=== PATIENT | male | born 1960 | race Caucasian/White ===

== ENCOUNTER 2024-03-11 20:40 | Inpatient (IN) | payer OTHER ==
[~2024-03-11] VITALS: Ht 177.8 cm; Wt 197.5 kg
[2024-03-11] MEDS ORDERED: MORPHINE SULFATE 4 MG/1 ML DISP.SYRIN ONE (21:30)
[2024-03-11] MEDS ORDERED: ONDANSETRON 4 MG/2 ML VIAL ONE (21:30)
[2024-03-11] MEDS: MORPHINE SULFATE 2 MG/1 ML DISP.SYRIN IV ONE (21:34)
[2024-03-11] MEDS: ONDANSETRON 4 MG/2 ML VIAL IV ONE (21:34)
[2024-03-11 21:45] LABS: BASOPHILS # (AUTO) 0.1 K/UL (0.0-0.2); BASOPHILS % (AUTO) 0.7 % (0.0-2.0); DIFFERENTIAL COMMENT 0; EOSINOPHILS # (AUTO) 0.1 K/uL (0.0-0.7); EOSINOPHILS % (AUTO) 0.9 % (0.0-7.0); HEMATOCRIT 34.9 % (36.7-47.1); HEMOGLOBIN 11.8 g/dL (12.5-16.3); LYMPHOCYTES # (AUTO) 1.3 K/uL (0.8-4.8); MEAN CORPUSCULAR HEMOGLOBIN 28.5 uug (23.8-33.4); MEAN CORPUSCULAR HGB CONC 34 g/dL (32.5-36.3); MEAN CORPUSCULAR VOLUME 84.5 fL (73.0-96.2); MONOCYTES # (AUTO) 0.9 K/uL (0.1-1.30); MONOCYTES % (AUTO) 6.8 % (0.0-11.0); NEUTROPHILS # (AUTO) 10.8 K/uL (1.8-8.9); NEUTROPHILS % (AUTO) 81.6 % (38.5-71.5); PLATELET COUNT (AUTO) 257 K/uL (152-348); RED BLOOD CELL COUNT(AUTO) 4.13 MIL/uL (4.06-5.63); RED CELL DISTRIBUTION WIDTH 17.1 % (12.1-16.2); WHITE BLOOD COUNT (AUTO) 13.2 K/uL (3.6-10.2)
[2024-03-11 22:18] LABS: *BILIRUBIN,URIN NEGATIVE (NEGATIVE); *BLOOD, URINE NEGATIVE (NEGATIVE); *CLARITY,URINE CLEAR (CLEAR); *COLOR,URINE YELLOW (YELLOW); *KETONES,URINE NEGATIVE (NEGATIVE); *PROTEIN,URINE 2+ (NEGATIVE); *UROBILINOGEN,URINE 0.2 E.U./dl (NORMAL); LEUKOCYTE ESTERASE ,URINE 1+ (NEGATIVE); NITRITE, URINE POSITIVE (NEGATIVE); PH,URINE 6.5 (5.0-8.0); UGLUCOSE NEGATIVE (NEGATIVE)
[2024-03-11 22:19] LABS: BACTERIA,URINE FEW /HPF (NONE SEEN); RBC,URINE 0-3 /HPF (0-3)
[2024-03-11] MEDS ORDERED: HYDROMORPHONE 1 MG/1 ML DISP.SYRIN ONE (22:25)
[2024-03-11] MEDS: HYDROMORPHONE 1 MG/1 ML DISP.SYRIN IV ONE (22:28)
[2024-03-11] MEDS ORDERED: METOCLOPRAMIDE HCL 10 MG TABLET ONE (22:38)
[2024-03-11] MEDS: METOCLOPRAMIDE HCL 10 MG TABLET PO ONE (22:39)
[2024-03-11 23:10] LABS: ALANINE AMINOTRANSFERASE 97 U/L (16-63); ALBUMIN 3.6 g/dL (3.4-5.0); ALKALINE PHOSPHATASE 93 U/L (50-136); ASPARTATE AMINOTRANSFERASE 50 U/L (15-37); BILIRUBIN,DIRECT 0.2 mg/dL (0.0-0.2); BILIRUBIN,TOTAL 0.4 mg/dL (0.2-1.0); CARBON DIOXIDE 25 mmol/L (21-32); CREATININE 0.9 mg/dL (0.6-1.3); GLUCOSE 150 mg/dL (74-106); TOTAL PROTEIN, SERUM 7.5 g/dL (6.4-8.2); UREA NITROGEN, BLOOD 32 mg/dL (7-18)
[2024-03-11] MEDS ORDERED: INSU100C SUBCUT (23:19)
[2024-03-11] MEDS ORDERED: METF-442 PO (23:19)
[2024-03-11] MEDS ORDERED: ATOR40TA PO (23:19)
[2024-03-11] MEDS ORDERED: ZIPR80CA2 PO (23:19)
[2024-03-11] MEDS ORDERED: INSU300I SQ (23:19)
[2024-03-11] MEDS ORDERED: LORAZEPAM 2 MG/1 ML VIAL ONE (23:46)
[2024-03-11] MEDS: LORAZEPAM 2 MG/1 ML VIAL IV ONE (23:58)
[2024-03-12] MEDS: IV NS 1000 ML 1,000 ML IV ONE (00:07)
[2024-03-12] MEDS ORDERED: HYDROMORPHONE 1 MG/1 ML DISP.SYRIN ONE (01:35)
[2024-03-12] MEDS: HYDROMORPHONE 1 MG/1 ML DISP.SYRIN IV ONE (01:41)
[2024-03-12 01:44] LABS: CHLORIDE 90 mmol/L (98-107); LIPASE 67 U/L (16-77); POTASSIUM 4.9 mmol/L (3.5-5.1); SODIUM SERUM 128 mmol/L (136-145)
[2024-03-12] MEDS ORDERED: CEFTRIAXONE /D5W 50ML IVPB **ER PYXIS IV ONE (02:31)
[2024-03-12] MEDS: CEFTRIAXONE 1 G in IV DEXTROSE 5% 50 ML IV ONE (02:39)
[2024-03-12] MEDS ORDERED: REMEDY ESSENTIAL ZINC PASTE 113 GM TP PRN (02:45)
[2024-03-12] MEDS ORDERED: DEXTROSE 50% 50 ML DISP.SYRIN IV PRN (02:45)
[2024-03-12] MEDS ORDERED: hydrALAZINE HCL 20 MG/1 ML VIAL ONE (03:19)
[2024-03-12] MEDS: hydrALAZINE HCL 20 MG/1 ML VIAL IV ONE (03:24)
[2024-03-12 04:10] VITALS: BP 114/83; TEMP 97.2; O2SAT 93
[2024-03-12] MEDS: HYDROMORPHONE 1 MG/1 ML DISP.SYRIN IV PRN (04:17)
[2024-03-12] MEDS: ONDANSETRON 4 MG/2 ML VIAL IV PRN (04:17)
[2024-03-12] MEDS: FUROSEMIDE 40 MG/4 ML VIAL IV ONE (04:19)
[2024-03-12] MEDS: BLOOD SUGAR DIAGNOSTIC 1 EACH STRIP VI SCH (06:32)
[2024-03-12 07:48] VITALS: BP 152/86; TEMP 98.3; O2SAT 93
[2024-03-12 11:49] VITALS: BP 124/70; TEMP 98.5; O2SAT 94
[2024-03-12] MEDS: INSULIN REGULAR, HUMAN 1000 UNIT/10 ML VIAL SQ PRN (12:09)
[2024-03-12] MEDS ORDERED: FERR-68 PO (13:49)
[2024-03-12] MEDS ORDERED: BROM2.5T19 PO (13:49)
[2024-03-12] MEDS ORDERED: BUPR-96 PO (13:49)
[2024-03-12] MEDS ORDERED: LORA0.5T48 PO (13:49)
[2024-03-12] MEDS ORDERED: FURO40TA5 PO (13:49)
[2024-03-12] MEDS ORDERED: METO-357 PO ×2 (13:49)
[2024-03-12] MEDS ORDERED: METH-806 PO (13:49)
[2024-03-12] MEDS ORDERED: ICOS1CAP PO (13:49)
[2024-03-12] MEDS ORDERED: OLME20TA13 PO (13:49)
[2024-03-12] MEDS ORDERED: METF-495 PO (13:49)
[2024-03-12] MEDS: NEOMY/BACITRAC/POLYMI OINT 28.35 GM TUBE TOP SCH (14:47)
[2024-03-12] MEDS: ACETAMINOPHEN 325 MG TABLET PO PRN (15:04)
[2024-03-12 16:00] VITALS: BP 127/73; TEMP 98; O2SAT 93
[2024-03-12] MEDS: HYDROMORPHONE 2 MG/1 ML DISP.SYRIN IV PRN (16:17)
[2024-03-12] MEDS: ARGININE/GLUTAMINE/CALCIUM BMB 1 EACH POWD.PACK PO SCH (17:00)
[2024-03-12] MEDS ORDERED: ZIPRASIDONE 20 MG CAPSULE PO SCH (19:15)
[2024-03-12 19:18] VITALS: BP 131/66; TEMP 98.2; O2SAT 91
[2024-03-12] MEDS: ATORVASTATIN 40 MG TABLET PO SCH (20:24)
[2024-03-12] MEDS: METOPROLOL SUCCINATE XL 50 MG TAB.SR.24H PO SCH (20:25)
[2024-03-12] MEDS: FUROSEMIDE 40 MG TABLET PO SCH (20:27)
[2024-03-12] MEDS: INSULIN GLARGINE,HUM 300 UNITS/3 ML CARTRIDGE SQ SCH (20:59)
[2024-03-12] MEDS: INSULIN REGULAR, HUMAN 300 UNITS/3 ML VIAL SQ PRN (21:04)
[2024-03-12 23:53] LABS: *SODIUM RNDM,URINE 45 mmol/L (40-220)
[2024-03-13] VITALS (7 sets, daily range): BP systolic 121–158; BP diastolic 51–92; TEMP 98–98.9; O2SAT 93–99
[2024-03-13] MEDS: HYDROMORPHONE 1 MG/1 ML DISP.SYRIN IV PRN (00:15)
[2024-03-13] MEDS: CEFTRIAXONE 1 G in IV DEXTROSE 5% 50 ML IV SCH (01:46)
[2024-03-13] MEDS: LORAZEPAM 0.5 MG TABLET PO PRN (03:15)
[2024-03-13] MEDS: METHOCARBAMOL 500 MG TABLET PO PRN (03:20)
[2024-03-13 07:47] LABS: ABG BASE EXCESS 3.2 mmol/L (-2.0-3.0); ABG HCO3 28.8 mmol/L (21.0-28.0); ABG PH 7.396 (7.350-7.450); ABG PO2 81.9 mmHg (83.0-108.0); ABG SITE RIGHT RADIAL; ABG TOTAL HEMOGLOBIN 13.2 G/dL (13.5-17.5); AaDO2 95.9 mmHg; COHb 0.5 % (0.5-1.5); MetHb 0.1 % (0.0-1.5); O2Hb 95.9 % (94.0-98.0)
[2024-03-13] MEDS: FERROUS SULFATE 325 MG TABEC PO SCH (08:17)
[2024-03-13] MEDS: buPROPion XL 150 MG TAB.SR.24H PO SCH (08:17)
[2024-03-13 15:57] LABS: BASOPHILS # (AUTO) 0.1 K/UL (0.0-0.2); BASOPHILS % (AUTO) 0.8 % (0.0-2.0); EOSINOPHILS # (AUTO) 0.1 K/uL (0.0-0.7); EOSINOPHILS % (AUTO) 1.7 % (0.0-7.0); HEMATOCRIT 35.4 % (36.7-47.1); LYMPHOCYTES # (AUTO) 1.3 K/uL (0.8-4.8); LYMPHOCYTES % (AUTO) 19.3 % (20.5-51.5); MEAN CORPUSCULAR HEMOGLOBIN 28.9 uug (23.8-33.4); MEAN CORPUSCULAR HGB CONC 34 g/dL (32.5-36.3); MEAN CORPUSCULAR VOLUME 85.2 fL (73.0-96.2); MONOCYTES # (AUTO) 0.7 K/uL (0.1-1.30); NEUTROPHILS # (AUTO) 4.5 K/uL (1.8-8.9); NEUTROPHILS % (AUTO) 67.2 % (38.5-71.5); PLATELET COUNT (AUTO) 252 K/uL (152-348); RED BLOOD CELL COUNT(AUTO) 4.16 MIL/uL (4.06-5.63); RED CELL DISTRIBUTION WIDTH 17.5 % (12.1-16.2); WHITE BLOOD COUNT (AUTO) 6.7 K/uL (3.6-10.2)
[2024-03-13 16:02] LABS: DIFFERENTIAL COMMENT 1
[2024-03-13 16:05] LABS: AMMONIA < 10 umol/L (11-32)
[2024-03-13 16:24] LABS: ALBUMIN 3.3 g/dL (3.4-5.0); BILIRUBIN,TOTAL 0.3 mg/dL (0.2-1.0); CALCIUM 9.9 mg/dL (8.5-10.1); CREATININE 0.8 mg/dL (0.6-1.3); MAGNESIUM 1.7 mg/dL (1.8-2.4); PHOSPHOROUS 3.3 mg/dL (2.5-4.9); POTASSIUM 4.4 mmol/L (3.5-5.1); TOTAL PROTEIN, SERUM 7.2 g/dL (6.4-8.2)
[2024-03-13 16:59] LABS: THYROID STIMULATING HORMONE 2.746 mIU/mL (0.358-3.740)
[2024-03-13 17:37] LABS: BILIRUBIN,DIRECT 0.1 mg/dL (0.0-0.2); URIC ACID 9.7 mg/dL (3.5-7.2)
[2024-03-13] MEDS: MAGNESIUM HYDROXIDE 30 ML LIQUID UDC PO PRN (17:53)
[2024-03-14 00:07] VITALS: O2SAT 97
[2024-03-14] MEDS: ONDANSETRON 4 MG/2 ML VIAL IV PRN (05:30)
[2024-03-14 05:57] VITALS: BP 133/80; TEMP 98.2; O2SAT 97
[2024-03-14] MEDS: ZIPRASIDONE 20 MG CAPSULE PO SCH (09:48)
[2024-03-14 16:53] VITALS: BP 130/82; TEMP 98.4; O2SAT 98
[2024-03-14 20:00] VITALS: BP 142/103; TEMP 98.9; O2SAT 94
[2024-03-14] MEDS: CEFTRIAXONE 2 G in IV DEXTROSE 5% 100 ML IV SCH (20:59)
[2024-03-14] MEDS: INSULIN GLARGINE,HUM 300 UNITS/3 ML CARTRIDGE SQ SCH (21:07)
[2024-03-15 05:30] VITALS: BP 119/52; TEMP 98.7; O2SAT 96
[2024-03-15] MEDS ORDERED: INSU300I SQ (12:19)
[2024-03-15] MEDS ORDERED: NUTR1PAC14 PO (12:19)
[2024-03-15] MEDS ORDERED: MULT-594 PO (12:19)
[2024-03-15 12:21] VITALS: BP 113/55; TEMP 99; O2SAT 94
[2024-03-15 15:48] VITALS: BP 137/55; TEMP 98.7; O2SAT 97
== END 2024-03-15 17:10 | disposition home health service (06) | DRG 699 ==
LOC: ER 20:40 → TELE3 03-12 02:28 → MEDSURG3 03-13 10:10
PROVIDERS: ADMIT Nurse Practitioner Acute Care; ATTEND Internal Medicine
DX: T83.510A Infection and inflammatory reaction due to cystostomy catheter, initial encounter (principal); D68.59 Other primary thrombophilia; N39.0 Urinary tract infection, site not specified; E87.1 Hypo-osmolality and hyponatremia; Z68.44 Body mass index [BMI] 60.0-69.9, adult; M47.12 Other spondylosis with myelopathy, cervical region; I45.2 Bifascicular block; M94.0 Chondrocostal junction syndrome [Tietze]; E86.0 Dehydration; E88.810 Metabolic syndrome; E66.01 Morbid (severe) obesity due to excess calories; M54.81 Occipital neuralgia; M48.02 Spinal stenosis, cervical region; E83.52 Hypercalcemia; Z91.041 Radiographic dye allergy status; I11.9 Hypertensive heart disease without heart failure; E11.40 Type 2 diabetes mellitus with diabetic neuropathy, unspecified; K58.2 Mixed irritable bowel syndrome; L21.9 Seborrheic dermatitis, unspecified; F25.9 Schizoaffective disorder, unspecified; N31.9 Neuromuscular dysfunction of bladder, unspecified; E11.65 Type 2 diabetes mellitus with hyperglycemia; G47.00 Insomnia, unspecified; G47.33 Obstructive sleep apnea (adult) (pediatric); F32.A Depression, unspecified; F41.9 Anxiety disorder, unspecified; F10.11 Alcohol abuse, in remission; Z79.4 Long term (current) use of insulin; Z74.09 Other reduced mobility; Z91.148 Patient's other noncompliance with medication regimen for other reason
CPT/HCPCS: 36415; 36600; 70450; 71045; 71250; 82652; 82803; 83550; 83690; 83735; 83921; 83970; 84100; 84300; 84443; 84484; 84550; 85025; 85730; 93005; 93307; A4606; A4663; A6209; G0378; J0360; J0696; J1171; J1815; J1940; J2060; J2270; J2405; J7040; J8597